=== PATIENT | female | born 1980 | race African-American/Black ===

== ENCOUNTER 2019-04-09 15:36 | Emergency (ER) | payer SELFPAY ==
[~2019-04-09] VITALS: Ht 167.6 cm; Wt 89.0 kg
[2019-04-09 16:49] VITALS: BP 128/89
== END 2019-04-09 16:49 | disposition home or self-care (01) ==
LOC: ER 15:36
DX: M79.672 Pain in left foot (principal); M79.671 Pain in right foot
CPT/HCPCS: 99281

== ENCOUNTER → 2020-03-31 | Outpatient (CLI) | payer OTHER ==
[~2020-03-31] MED LIST: ERGO2000 PO
== END | disposition home or self-care (01) ==
LOC: LAB 14:36
PROVIDERS: ATTEND Obstetrics & Gynecology Obstetrics
DX: Z01.818 Encounter for other preprocedural examination (principal); Z11.59 Encounter for screening for other viral diseases
CPT/HCPCS: C9803; U0003

== ENCOUNTER 2020-04-14 15:48 | Inpatient (IN) | payer OTHER ==
[~2020-04-14] VITALS: Ht 182.9 cm; Wt 77.0 kg
[2020-04-14] MEDS ORDERED: SODIUM CHLORIDE 0.9% 1,000 ML IV ONE (16:26)
[2020-04-14] MEDS ORDERED: ONDANSETRON HCL 4MG/2ML INJ IV STA (16:26)
[2020-04-14] MEDS ORDERED: MORPHINE SULFATE 4 MG/ML CPJ (NOT FOR IM USE) IV ONE (17:00)
[2020-04-14 17:09] LABS: CLARITY URINE TURBID (CLEAR); COLOR URINE DARK YELLOW (YELLOW); KETONES URINE TRACE (NEGATIVE); LEUKOCYTE ESTERASE URINE TRACE (NEGATIVE); NITRITE URINE NEGATIVE (NEGATIVE); OCCULT BLOOD URINE 3+ (NEGATIVE); PH URINE 5.5 (4.5-8.0); PROTEIN URINE 2+ (NEGATIVE); SPECIFIC GRAVITY URINE 1.027 (1.005-1.030)
[2020-04-14 17:14] LABS: BASOPHILS % 0.6 % (0.0-2.0); HEMATOCRIT. 31.3 % (36.0-48.0); HEMOGLOBIN. 10.4 g/dL (12.0-16.0); LYMPHOCYTES % 9.2 % (20.0-50.0); MEAN CORPUSCULAR HEMOGLOBIN 28.7 pg (28.0-32.0); MEAN CORPUSCULAR VOLUME 86.1 fL (81.0-99.0); MEAN PLATELET VOLUME 7.6 fl (7.4-10.4); MONOCYTES % 3.5 % (2.0-8.0); NEUTROPHILS % 86.7 % (40.0-76.0); PLATELET 813 x1000/uL (130-400); RED BLOOD CELL COUNT 3.63 mill/uL (4.2-5.4); RED CELL DISTRIBUTION WIDTH 15.3 % (11.6-14.6)
[2020-04-14 17:24] LABS: CHLORIDE 104 mEq/L (98-107)
[2020-04-14 17:25] LABS: INR 1.1; PROTHROMBIN TIME 11.4 sec (9.6-11.0)
[2020-04-14 17:30] LABS: HCG SCREEN NEGATIVE
[2020-04-14 17:34] LABS: B-HCG QUANTITATIVE < 1 mIU/mL (<3)
[2020-04-14] MEDS ORDERED: DEXT 5%/LACTATED RINGERS 1,000 ML IV ONE (19:30)
[2020-04-14] MEDS ORDERED: TRAMADOL 50MG TABLET PO PRN (20:15)
[2020-04-14] MEDS ORDERED: IOHEXOL-300 100 ML BOTTLE ONE (22:18)
[2020-04-14] MEDS ORDERED: MORPHINE SULFATE 4 MG/ML CPJ (NOT FOR IM USE) IV NR (22:30)
[2020-04-14] MEDS: METOCLOPRAMIDE HCL 10MG/2ML VIAL IV SCH (22:50)
[2020-04-15] MEDS: METOCLOPRAMIDE HCL 10MG/2ML VIAL IV SCH ×2 (03:43→08:26)
[2020-04-15] MEDS ORDERED: DOCUSATE SODIUM 100MG CAPSULE PO SCH (09:00)
[2020-04-15 13:45] VITALS: BP 109/73
== END 2020-04-15 16:31 | disposition home or self-care (01) | DRG 641 ==
LOC: ER 15:48 → MICUSO 16:41 → 5WST 04-15 20:29
PROVIDERS: ADMIT Obstetrics & Gynecology Obstetrics; ATTEND Obstetrics & Gynecology Obstetrics
DX: E86.0 Dehydration (principal); Z79.899 Other long term (current) drug therapy
CPT/HCPCS: 36415; 74177; 80053; 81003; 83605; 84702; 84703; 85025; 96374; 99285; J2270; J2405; J2765; J7030; J7121; Q9967